=== PATIENT | female | born 1945 | race Caucasian/White ===

== ENCOUNTER → 2016-10-19 | Outpatient (CLI) | payer OTHER | LOC: HYPER 06:46 | DX: L89.303 Pressure ulcer of unspecified buttock, stage 3 (principal); E78.00 Pure hypercholesterolemia, unspecified; Z87.891 Personal history of nicotine dependence; Z72.89 Other problems related to lifestyle ==

== ENCOUNTER → 2016-11-02 | Outpatient (CLI) | payer OTHER | LOC: HYPER 07:04 | DX: S14.107D Unspecified injury at C7 level of cervical spinal cord, subsequent encounter (principal); L89.303 Pressure ulcer of unspecified buttock, stage 3; E78.00 Pure hypercholesterolemia, unspecified; M85.80 Other specified disorders of bone density and structure, unspecified site; Z87.891 Personal history of nicotine dependence; Z72.89 Other problems related to lifestyle; X58.XXXD Exposure to other specified factors, subsequent encounter ==

== ENCOUNTER → 2017-07-27 | Outpatient (CLI) | payer OTHER | LOC: HYPER 07:04 | DX: L89.312 Pressure ulcer of right buttock, stage 2 (principal); L89.322 Pressure ulcer of left buttock, stage 2; E78.00 Pure hypercholesterolemia, unspecified; Z87.891 Personal history of nicotine dependence ==

== ENCOUNTER → 2017-08-10 | Outpatient (CLI) | payer OTHER | LOC: HYPER 08-03 13:03 | DX: L89.312 Pressure ulcer of right buttock, stage 2 (principal); L89.322 Pressure ulcer of left buttock, stage 2; E78.00 Pure hypercholesterolemia, unspecified; Z87.891 Personal history of nicotine dependence ==

== ENCOUNTER → 2017-09-01 | Outpatient (CLI) | payer OTHER | LOC: HYPER 06:45 | DX: L89.322 Pressure ulcer of left buttock, stage 2 (principal); N39.46 Mixed incontinence; L24.9 Irritant contact dermatitis, unspecified cause; R21 Rash and other nonspecific skin eruption; E78.00 Pure hypercholesterolemia, unspecified; Z87.891 Personal history of nicotine dependence ==

== ENCOUNTER → 2018-02-21 | Outpatient (CLI) | payer OTHER | LOC: HYPER 06:38 | DX: R21 Rash and other nonspecific skin eruption (principal); L24.9 Irritant contact dermatitis, unspecified cause; N39.46 Mixed incontinence; E78.00 Pure hypercholesterolemia, unspecified; Z87.891 Personal history of nicotine dependence ==

== ENCOUNTER → 2018-04-30 | Outpatient (CLI) | payer OTHER | LOC: HYPER 03-20 13:11 | DX: L89.329 Pressure ulcer of left buttock, unspecified stage (principal); L89.319 Pressure ulcer of right buttock, unspecified stage; S14.107D Unspecified injury at C7 level of cervical spinal cord, subsequent encounter; L24.9 Irritant contact dermatitis, unspecified cause; R21 Rash and other nonspecific skin eruption; E78.00 Pure hypercholesterolemia, unspecified; N39.46 Mixed incontinence; M85.80 Other specified disorders of bone density and structure, unspecified site; Z87.891 Personal history of nicotine dependence; X58.XXXD Exposure to other specified factors, subsequent encounter ==